=== PATIENT | female | born 1960 | race Caucasian/White ===

== ENCOUNTER 2017-10-31 14:07 | Observation (INO) | payer OTHER ==
[2017-10-31 14:48] LABS: #Basophils 0.1 thou/uL (0.0-0.2); #Eosinphils 0.1 thou/uL (0.0-0.7); #Lymphocytes 1.9 thou/uL (1.20-3.40); #Monocytes 0.5 thou/uL (0.11-0.59); #Neutrophils 7.6 thou/uL (1.40-6.50); %Basophils 0.8 % (0.0-1.0); %Eosinophils 1.4 % (0.0-10.0); %Lymphocytes 18.2 % (21.0-51.0); %Neutrophils 74.6 % (42.0-75.0); Hemoglobin 14.3 g/dL (12.0-16.0); Mean Corpuscular HGB CONC 33.8 g/dL (32.0-36.0); Mean Corpuscular Hemoglobin 31.1 pg (27.0-31.0); Mean Platelet Volume 6.9 fL (7.4-10.4); Platelet Count 193 thou/uL (130-400); RBC Distribution Width 14.1 % (11.5-14.5); Red Blood Cell (RBC) Count 4.59 mill/uL (4.20-5.40); White Blood Cell (WBC) Count 10.2 thou/uL (4.8-10.8)
--- NOTE | 2017-10-31 15:01 | RAD ---
PORTABLE CHEST 1 VIEW: DATE: 10/31/17. TIME: 2:46 p.m. HISTORY: Dyspnea. FINDINGS: Comparison is made with the exam of 03/19/17. Left-sided AICD remains in lace. The heart size is normal. The lungs are expanded without confluent areas of consolidation, pneumothoraces, or pleural effusions. IMPRESSION: No radiographic evidence of acute cardiopulmonary process. POS: OFF
[2017-10-31 15:09] LABS: ALT (SGPT) 40 U/L (8-55); AST (SGOT) 87 U/L (5-34); Albumin 3.6 g/dL (3.5-5.0); Alkaline Phosphatase 132 U/L (40-150); Anion Gap 14 mmol/L (10-20); BUN (Urea Nitrogen) 13 mg/dL (9.8-20.1); Bilirubin, Total 0.9 mg/dL (0.2-1.2); Calc. Creatinine Clearance 0 mL/min (70-130); Calcium 9.3 mg/dL (7.8-10.44); Carbon Dioxide 24 mmol/L (22-29); Chloride 104 mmol/L (98-107); Estimated GFR-MDRD 87; Globulin 4.2 g/dL (2.4-3.5); Glucose 139 mg/dL (70-105); Potassium 3.3 mmol/L (3.5-5.1); Protein, Total 7.8 g/dL (6.0-8.3); Sodium 139 mmol/L (136-145)
[2017-10-31] MEDS ORDERED: Albuterol Sulfate 2.5 mg/0.5 ml Neb ONE ×4 (15:34)
[2017-10-31] MEDS ORDERED: methylPREDNISolone Sod Succ/PF 125 MG/2 ML VIAL ONE (16:43)
[2017-10-31] MEDS ORDERED: Magnesium Sulfate 2 GM/100 ML BAG ONE (16:45)
[2017-10-31] MEDS ORDERED: Acetaminophen 500 MG TAB ONE (17:45)
[2017-10-31 18:37] LABS: Bilirubin Moderate (Negative); Blood, Urine Negative (Negative); Clarity CLOUDY (Clear); Glucose, Urine (Dipstick) Negative (Negative); Leukocyte Large (Negative); Nitrite Positive (Negative); Protein, Urine (Dipstick) 100 mg/dL (Neg-Trace); Specific Gravity, Urine 1.031 (1.002-1.036)
[2017-10-31 18:38] LABS: Hyaline Casts/LPF 4-6 HYALINE CAST LPF (0-3 Hyaline); Pathc Cast-AUWi Flag 1.76 (0-2.49); RBC/HPF None Seen HPF (0-3)
[2017-10-31 18:46] LABS: Yeast-AUWi Flag 26.1 (0-25.0)
[2017-10-31 18:58] LABS: Lactic Acid 2.4 mmol/L (0.5-2.2)
[2017-10-31 19:00] LABS: Bacteria/HPF 2+ HPF (None Seen); Crystals/HPF 1+ CA OXALATE HPF (Negative); Yeast-All Forms None Seen HPF (None Seen)
--- NOTE | 2017-10-31 19:21 | PDOC.FPRHP ---
- History of Present Illness Chief Complaint: SOB, productive cough History of Present Illness: 57 yo F w/ PMH of COPD, hep c cirrhosis, prior alcohol and drug abuse, htn, ventricular arrhythmia s/p AICD in 2001 and anxiety presents for 3 day h/o increasing sob with associated increased sputum production. The patient was discharged from the half-way recently and was given medications for a month and instructed to establish care with a primary physician; however, she has been unable to do so. She has run out of her home medications and the last time she used her inhaler was 3 days ago. Since then she has had the above symptoms w /o resolution and progressively worsening. She also reports associated chills, subjective fever, n/v, pleuritic type chest pain that is worse with cough and deep inspiration, described as sharp and non-radiating. On review of previous visit notes, pt has h/o copd being treated with dulera and albuterol, chronic hep c, htn on metoprolol and chronic back pain controlled with tramadol. - Allergies/Adverse Reactions Allergies Allergy/AdvReac Type Severity Reaction Status Date / Time furosemide [From Lasix] Allergy Unknown Rash Verified 03/20/17 03:52 codeine Allergy Rash Verified 03/20/17 02:08 morphine Allergy Verified 03/20/17 02:08 - Home Medications Medication Instructions Recorded Confirmed Type ALPRAZolam [Xanax] 0.5 mg PO TID 03/20/17 10/31/17 History Metoprolol Tartrate [Lopressor] 12.5 mg PO BID 03/20/17 10/31/17 History Omeprazole 20 mg PO DAILY 03/20/17 10/31/17 History Potassium Chloride [Klor-Con M20] 40 meq PO TID 03/20/17 10/31/17 History Sertraline HCl [Zoloft] 50 mg PO DAILY 03/20/17 10/31/17 History traMADol HCl [Tramadol HCl] 1 - 2 tab PO QID 03/20/17 10/31/17 History Mometasone/Formoterol [Dulera 200 2 puff INH BID #1 inhaler 03/23/17 10/31/17 Rx mcg/5 mcg Inhaler] Spironolactone [Aldactone] 25 mg PO DAILY 10/31/17 10/31/17 History - History PMHx: COPD, HTN, Hep CAlcoholic cirrhosis, prior drug and alcohol abuse, HTN, ventricular arrhythmia s/p aicd 2002, DJD spine PSHx: "back surgeries" FHx: Lung Ca mother, COPD father Social: Current every day smoker .5 ppd X 45 years, 22.5 pack year history, former alcohol and drug use. - Review of Systems General: reports: fever/chills, weight/appetite/sleep changes. denies: fatigue Eyes: denies: eye pain, vision changes ENT: reports: nasal congestion. denies: rhinorrhea Respiratory: reports: cough, congestion, shortness of breath. denies: exercise intolerance Cardiovascular: reports: chest pain. denies: palpitation, edema, orthopnea Gastrointestinal: reports: nausea, vomiting, abdominal pain. denies: diarrhea, constipation, GI bleeding Genitourinary: denies: incontinence, dysuria, polyuria Skin: reports: rashes (LLE, chronic), lesions Musculoskeletal: denies: swelling, arthritis/arthralgias Neurological: denies: numbness, syncope, weakness Psychological: reports: anxiety - Vital signs BP: 153/92 HR: 91 RR: 21 Tmax: 98.5 Pox: 88% on RA Wt: 65 Kg - Physical Exam Constitutional: NAD, awake, alert and oriented, well developed HEENT: normocephalic and atraumatic, PERRLA, EOMI, conjunctiva clear, no scleral icterus, grossly normal vision, TM's clear and intact, grossly normal hearing, MMM, oropharynx clear Neck: supple, trachea midline, no LAD, no JVD, no thyromegaly Chest: no-tender to palpation Heart: RRR, normal S1/S2, no murmurs/rubs/gallops, pulses present, no edema Lungs: no respiratory distress, good air movement, no rales/rhonchi, other ( diffuse mild end expiratory wheezing) Abdomen: soft, bowel sounds present, no masses/distention, other (TTP epigastric , RUQ no rebound or guarding) Musculoskeletal: normal structure, normal tone, ROM grossly normal Neurological: no focal deficit, CN II-XII intact Skin: capillary refill <2 seconds, no jaundice, other (scaling erythematous skin of LLE) Heme/Lymphatic: no unusual bruising or bleeding, no purpura, no petechia Psychiatric: other (appears anxious) FMR H&P: Results - Labs Result Diagrams: 10/31/17 14:28 10/31/17 14:28 Lab results: WBC 10.2 thou/uL (4.8-10.8) 10/31/17 14:28 Hgb 14.3 g/dL (12.0-16.0) 10/31/17 14:28 Hct 42.2 % (36.0-47.0) 10/31/17 14:28 MCV 92.0 fl (81.0-99.0) 10/31/17 14:28 Plt Count 193 thou/uL (130-400) 10/31/17 14:28 Neutrophils % 74.6 % (42.0-75.0) 10/31/17 14:28 Sodium 139 mmol/L (136-145) 10/31/17 14: Potassium 3.3 mmol/L (3.5-5.1) L 10/31/17 14: Chloride 104 mmol/L (98-107) 10/31/17 14:28 Carbon Dioxide 24 mmol/L (22-29) 10/31/17 14:28 BUN 13 mg/dL (9.8-20.1) 10/31/17 14:28 Creatinine 0.69 mg/dL (0.6-1.1) 10/31/17 14: Glucose 139 mg/dL (70-105) H 10/31/17 14:28 Lactic Acid 2.4 mmol/L (0.5-2.2) H 10/31/17 18:27 Calcium 9.3 mg/dL (7.8-10.44) 10/31/17 14:28 Total Bilirubin 0.9 mg/dL (0.2-1.2) 10/31/17 14:28 AST 87 U/L (5-34) H 10/31/17 14:28 ALT 40 U/L (8-55) 10/31/17 14:28 Alkaline Phosphatase 132 U/L (40-150) 10/31/17 14:28 Serum Total Protein 7.8 g/dL (6.0-8.3) 10/31/17 14:28 Albumin 3.6 g/dL (3.5-5.0) 10/31/17 14:28 Urine Ketones Trace mg/dL (Negative) H 10/31/17 18:20 Urine Blood Negative (Negative) 10/31/17 18:20 Urine Nitrite Positive (Negative) H 10/31/17 18:20 Ur Leukocyte Esterase Large (Negative) H 10/31/17 18:20 Urine RBC None Seen HPF (0-3) 10/31/17 18:20 Urine WBC Greater Than 50-TNTC HPF (0-3) H 10/31/17 18:20 Ur Squamous Epith Cells 11-20 HPF (0-3) H 10/31/17 18:20 Urine Bacteria 2+ HPF (None Seen) H 10/31/17 18:20 - EKG Interpretation EKG: Paced rhythm , rate 91. No ST changes. - Radiology Interpretation Chest x-ray Status: report reviewed by me Additional comment: AICD in place, No acute disease. FMR H&P: A/P - Problem List (1) COPD exacerbation Current Visit: Yes Status: Suspected Code(s): J44.1 - CHRONIC OBSTRUCTIVE PULMONARY DISEASE W (ACUTE) EXACERBATION (2) HTN (hypertension) Current Visit: Yes Status: Chronic Code(s): I10 - ESSENTIAL (PRIMARY) HYPERTENSION (3) UTI (urinary tract infection) Current Visit: Yes Status: Acute (4) Anxiety Current Visit: No Status: Chronic Code(s): F41.9 - ANXIETY DISORDER, UNSPECIFIED (5) Chronic hepatitis C Current Visit: No Status: Chronic Code(s): B18.2 - CHRONIC VIRAL HEPATITIS C Qualifiers: Hepatic coma status: without hepatic coma Qualified Code(s): B18.2 - Chronic viral hepatitis C (6) Chronic pain syndrome Current Visit: No Status: Chronic Code(s): G89.4 - CHRONIC PAIN SYNDROME (7) Hypokalemia Current Visit: No Status: Acute Code(s): E87.6 - HYPOKALEMIA (8) S/P implantation of automatic cardioverter/defibrillator (AICD) Current Visit: No Status: Chronic Code(s): Z95.810 - PRESENCE OF AUTOMATIC ( IMPLANTABLE) CARDIAC DEFIBRILLATOR - Plan 1) COPD exacerbation, mild-moderate - Pt satting at 88% ra w/o evidence of respiratory distress and has not received medications in last 3 days - admit obs - Duonebs q4hrs prn for wheezing sob, albuterol PRN - maintain sats 88-92% - levaquin 750mg q24hrs - Prednisone oral, 40 mg/day x 5 days - IVF NS @ 100mls/hr - repeat am cbc 2) HTN - Continue metoprolol 12.5mg bid - vitals per unit routine - 2 elevated pressures in ED, will monitor 3) UTI: - levaquin started for tonight, sufficient coverage - f/u on cultures, will de-escalate when ready for dc and transition to oral abx - am cbc 4) Anxiety: - continue zoloft 50mg/day - continue alprazolam .5 tid 5) Hep c cirrhosis - no evidence of ascites on exam - Mildly elevated AST - h/o spirinolactone use, unknown last dose - will need updated medical record from half-way - hold spirinolactone for now - repeat am cmp 6) Chronic pain - continue tramadol 50mg QID prn for pain 7) Hypokalemia - replace - check magnesium - replace as indicated 8) s/p AICD - h/o ventricular arrythmia - pt does report atypical chest pain for last 3 days that has not changed in character or severity; will check cardiac enzymes X1, if negative no need to repeat given pts symptoms have been present for 3 days. 9) PPX: SCDS, Omeprazole/tums Disposition/LOS: stable. </= 2 days. Symptomatic meds will be provided. FMR H&P: Upper Level - Pertinent history 48yo CF with PMHx of COPD, Hep C &EtOH cirrhosis, CAD w/ AICD placement and HTN who presents with worsening shortness of breath. Patient previously resided at [place] for 2yrs and was on hospice for 1yr during that time. She recently left the [place] 3d ago and now lives with her boyfriend. She has been out of all of her meds since leaving the [place] and is in the process of establishing care with a PCP. Endorses worsening shortness of breath, wheezing and productive cough for the past 3d. States she is coughing up a lot of white/clear phlegm. Says she has previously been on multiple inhalers but thinks she is just on albuterol now. Denies any fevers, chills, nasal congestion, sore throat, diarrhea. Endorses some nausea and vomiting today. In the ED, patient was given MgSO4 2g IV, solumedrol 125mg IV, duoneb and Tylenol 1g - Pertinent findings Gen: NAD HEENT: PERRLA Heart: S1 S2, RRR Lungs: diffuse expiratory wheezes Abd: soft, nt/nd/bs+ MSK: no cyanosis or edema - Plan Date/Time: 10/31/171906 I, Kaitlynn Mathews, have evaluated this patient and agree with findings/ plan as outlined by bakery pastry internship resident. Pertinent changes/additions are listed here. 1. COPD exacerbation: Place on obs to medical. Patient has been out of her albuterol inhaler for the past 3d as she recently left the [facility]. Given duonebs, MgSO4 and solumedrol in the ED. Cont duonebs and prednisone PO. Add Levaquin. Monitor overnight and likely discharge home tomorrow. 2. Elevated lactate: likely 2/2 #1. Initial lactate of 2.8 and trending down. Cont IVF. Trend q2H until resolved. 3. Hypokalemia: replenish and monitor. 4. Cirrhosis 2/2 Hep C and EtOH: Previously on spironolactone. Denies any ascites. Monitor. 4. HTN: cont home metoprolol 5. HLD: obtain FLP. Not on medication. Consider adding statin. 6. Anxiety/Depression: cont home Zoloft 7. Chronic low back pain 2/2 severe degenerative disc disease: cont home tramadol 8. Hx of medication non-compliance: Patient is a poor historian. Plan to obtain records from [place]. 9. PPx: SCDs 10. Diet: 11. Code Status: Full
[2017-10-31] MEDS ORDERED: Ondansetron ODT 4 MG TAB SL PRN (19:26)
[2017-10-31] MEDS ORDERED: Ondansetron HCl/PF 4 MG/2 ML Vial IVP PRN ×2 (19:26→19:40)
[2017-10-31] MEDS ORDERED: Acetaminophen 325 MG TAB PO PRN ×2 (19:26→19:40)
[2017-10-31] MEDS ORDERED: Albuterol Sulfate 2.5 mg/3 ml Neb NEB PRN ×2 (19:28→19:40)
[2017-10-31] MEDS ORDERED: Guaifenesin DM 100-10/5 ML UDCUP PO PRN (19:40)
[2017-10-31] MEDS ORDERED: Calcium Carbonate 500 MG ChewTAB PO PRN (19:40)
[2017-10-31] MEDS ORDERED: Ondansetron ODT 4 MG TAB PO PRN (19:40)
[2017-10-31 19:54] VITALS: BMI 23.3
[2017-10-31 20:12] LABS: CKMB 4.7 ng/mL (0-6.6); Troponin I 0.015 ng/mL (< 0.028)
[2017-10-31 20:50] LABS: Lactic Acid 2.1 mmol/L (0.5-2.2)
[2017-10-31] MEDS: Sodium Chloride 0.9% 1,000 ML IV SCH (21:48)
[2017-10-31] MEDS: Metoprolol Tartrate 25 MG TAB PO SCH (21:48)
[2017-10-31] MEDS: ALPRAZolam 0.5 MG TAB PO SCH (21:48)
[2017-10-31] MEDS: Potassium Chloride 20 MEQ TAB PO SCH (21:49)
[2017-10-31 23:19] LABS: Amphetamine Not Detected (NotDetected); Barbiturates Screen Not Detected (NotDetected); Benzodiazepine Screen Detected (NotDetected); Cocaine Metabolite Screen Not Detected (NotDetected); Medtox Control Line Valid? VALID (VALID); Medtox Reader # READER 1; Methadone Not Detected (NotDetected); Methamphetamine Not Detected (NotDetected); Opiate Screen Not Detected (NotDetected); Oxycodone Screen Not Detected (NotDetected); Phencyclidine (PCP) Not Detected (NotDetected); THC/Cannabinoid Screen Not Detected (NotDetected); Tricyclic Screen Not Detected (NotDetected)
[2017-10-31] MEDS: traMADol HCl 50 MG TAB PO PRN (23:43)
[2017-11-01 05:28] LABS: Anion Gap 12 mmol/L (10-20); BUN (Urea Nitrogen) 19 mg/dL (9.8-20.1); Calc. Creatinine Clearance 87 mL/min (70-130); Carbon Dioxide 23 mmol/L (22-29); Chloride 106 mmol/L (98-107); Estimated GFR-MDRD 83; Potassium 3.5 mmol/L (3.5-5.1); Sodium 137 mmol/L (136-145)
[2017-11-01 05:29] LABS: ALT (SGPT) 54 U/L (8-55); AST (SGOT) 96 U/L (5-34); Albumin 3.5 g/dL (3.5-5.0); Alkaline Phosphatase 133 U/L (40-150); Bilirubin, Total 0.6 mg/dL (0.2-1.2); Calcium 9.5 mg/dL (7.8-10.44); Cardiac Risk 2.6 (Less than 4.5); Cholesterol 137 mg/dl (< 200 Desired); Glucose 244 mg/dL (70-105); HDL Cholesterol 53 mg/dL (>60 Neg Risk); LDL Cholesterol, Calculated 76 mg/dL; Protein, Total 7.5 g/dL (6.0-8.3); Triglycerides 39 mg/dL (Less than 150)
[2017-11-01] MEDS: traMADol HCl 50 MG TAB PO PRN ×2 (06:12→11:02)
[2017-11-01 06:44] LABS: Band 9 % (5-11); Hemoglobin 13.6 g/dL (12.0-16.0); Lymphocytes 7 % (21-51); MDiff Complete? YES; Mean Corpuscular HGB CONC 32.2 g/dL (32.0-36.0); Mean Corpuscular Hemoglobin 29.7 pg (27.0-31.0); Mean Corpuscular Volume 92.1 fl (81.0-99.0); Mean Platelet Volume 7.3 fL (7.4-10.4); Monocytes 3 % (0-10); Neutrophil 81 % (42-75); Platelet Count 173 thou/uL (130-400); RBC Distribution Width 14.2 % (11.5-14.5); Red Blood Cell (RBC) Count 4.57 mill/uL (4.20-5.40); White Blood Cell (WBC) Count 4.9 thou/uL (4.8-10.8)
[2017-11-01] MEDS ORDERED: Magnesium 2 GM/NS 0.9% 100 ML 3 GM in Premix Bag 1 BAG IVPB SCH (06:45)
[2017-11-01] MEDS ORDERED: Magnesium Sulfate 3 GM, Admixture Fee 1 EACH in Sodium Chloride 0.9% 100 ML IVPB SCH (06:45)
[2017-11-01] MEDS: Potassium Chloride 20 MEQ TAB PO SCH (08:52)
[2017-11-01] MEDS: Metoprolol Tartrate 25 MG TAB PO SCH (08:52)
[2017-11-01] MEDS: ALPRAZolam 0.5 MG TAB PO SCH (08:53)
[2017-11-01] MEDS: Sodium Chloride 0.9% 1,000 ML IV SCH (08:58)
[2017-11-01] MEDS ORDERED: predniSONE 20 MG TAB PO SCH (09:00)
--- NOTE | 2017-11-01 09:25 | PDOC.FM ---
- Subjective Subjective: CC: AICD fired HPI: Patient states her AICD fired overnight. No other concerns. Breathing better. - Objective MAR Reviewed: Yes Vital Signs & Weight: Vital Signs (12 hours) Temp Pulse Resp BP BP Pulse Ox 11/01/17 08:00 97.7 F 94 20 11/01/17 07:48 97.7 F 94 20 163/81 H 96 11/01/17 02:56 97.9 F 95 20 150/74 H 92 L 11/01/17 01:31 93 20 98 11/01/17 00:58 94 24 H 145/93 H 92 L 10/31/17 22:08 89 22 H 97 Weight Weight 65.453 kg I&O: 10/31/17 11/01/17 11/02/17 06:59 06:59 06:59 Intake Total 991 Output Total 400 Balance 591 Result Diagrams: 11/01/17 04:42 11/01/17 04:42 EKG Reviewed by me: Yes (unchanged from admision. ) Radiology Reviewed by me: Yes (no infiltrate. ) <Oscar Joseph W - Last Filed: 11/01/17 09:23> - Objective Vital Signs & Weight: Vital Signs (12 hours) Temp Pulse Resp BP BP Pulse Ox 11/01/17 08:00 97.7 F 94 20 11/01/17 07:48 97.7 F 94 20 163/81 H 96 11/01/17 02:56 97.9 F 95 20 150/74 H 92 L 11/01/17 01:31 93 20 98 11/01/17 00:58 94 24 H 145/93 H 92 L Weight Weight 65.453 kg I&O: 10/31/17 11/01/17 11/02/17 06:59 06:59 06:59 Intake Total 991 Output Total 400 Balance 591 Result Diagrams: 11/01/17 04:42 11/01/17 04:42 <Nito Paez - Last Filed: 11/01/17 11:12> Phys Exam - Physical Examination Constitutional: NAD HEENT: moist MMs, sclera anicteric Neck: no nodes, no JVD Respiratory: no wheezing, clear to auscultation bilateral Cardiovascular: RRR, no significant murmur Gastrointestinal: soft, non-tender Musculoskeletal: no edema Neurological: non-focal, moves all 4 limbs Psychiatric: normal affect, A&O x 3 Skin: no rash, cap refill <2 seconds <Oscar Joseph - Last Filed: 11/01/17 09:23> Dx/Plan (1) COPD exacerbation Code(s): J44.1 - CHRONIC OBSTRUCTIVE PULMONARY DISEASE W (ACUTE) EXACERBATION Status: Suspected Plan: Prednisone/Levoquin day 2 - VSS. Breathing normal plan for d/c today and continue prednisone and levaquin for 5 days total. (2) S/P implantation of automatic cardioverter/defibrillator (AICD) Code(s): Z95.810 - PRESENCE OF AUTOMATIC (IMPLANTABLE) CARDIAC DEFIBRILLATOR Status: Chronic Plan: Was just d/c from [place] and has not seen fiscal economist in several years. Will get patient into [facility] soon and make appropriate referrals. EKG unremarkable. <Oscar Joseph - Last Filed: 11/01/17 09:23> Attending Addendum - Attending Addendum Date/Time: 11/01/17 1109 I personally evaluated the patient and discussed the management with Dr. Joseph. I agree with the History, Examination, Assessment and Plan documented above with any addition or exceptions noted below. Patient admitted for mild COPD exacerbation. Doing well on room air and improved from admission. She will be discharged on steroid taper, antibiotics, and chronic COPD meds that she has previously run out of. She will follow up in our clinic next week. <Nito Paez - Last Filed: 11/01/17 11:12>
--- NOTE | 2017-11-01 11:15 | DIS-2 ---
DATE OF ADMISSION: 10/31/2017 DATE OF DISCHARGE: 11/01/2017 RESIDENT: Oscar Joseph M.D. ADMITTING ATTENDING: Kaylyn Wright M.D. DISCHARGING ATTENDING: Nito Paez M.D. CONSULTATIONS: None. PROCEDURES: None. IMAGING: Chest x-ray, 10/31/2017 showed no acute processes. PERTINENT LABORATORY FINDINGS: Lactic acid at the time of admission 2.8 trended down to 2.1, magnesium at time of admission 1.2, replaced with 3 grams IV. Potassium at admission 3.1, replaced, trended up to 3.5. Cardiac enzymes were negative. Microbiology: Urine culture and blood cultures were taken. Negative at this time. Influenza swab was taken and negative for both influenza A and influenza B. PRIMARY DIAGNOSES: 1. Acute chronic obstructive pulmonary disease exacerbation. 2. AICD triggered with no changes in EKG. 3. Uncomplicated urinary tract infection. SECONDARY DIAGNOSES: 1. Hypertension. 2. Anxiety. 3. Hepatitis C with cirrhosis. 4. Chronic pain. 5. Hypokalemia. DISCHARGE MEDICATIONS: 1. Xanax 0.5 mg p.o. t.i.d., dispensed #42 tabs. 2. Robitussin-DM 15 mL q.4 hours p.r.n. for cough. 3. DuoNebs 3 mL q.4 h. p.r.n. 4. Levaquin 750 mg daily for 4 days. 5. Metoprolol tartrate 12.5 mg p.o. b.i.d. 6. Dulera 200 mcg/5 mcg inhaled 2 puffs b.i.d. 7. Omeprazole 20 mg daily. 8. Potassium chloride 20 mEq t.i.d. 9. Prednisone 40 mg daily for additional 4 days. 10. Zoloft 50 mg daily. 11. Spironolactone 25 mg daily. 12. Tramadol 50 mg p.o. q.i.d. p.r.n., dispensed #56 tabs. 13. Nebulizer machine with tubing and mask. DISCONTINUED MEDICATIONS: None. HISTORY OF PRESENT ILLNESS AND HOSPITAL COURSE: Ms. Hinds is a pleasant but anxious 57-year-old female who presented to the ER with 3-day history of shortness of breath and increased sputum production. She was recently discharged from a detention and was given 1 month supply of medications. However, she failed to follow up with an outpatient physician and has since run out of her medications for 3 days. She was admitted on observation status, given oral prednisone, DuoNebs and started on Levaquin. Additionally, her urine was suspicious for urinary tract infection. The patient was complaining of suprapubic pain and some mild dysuria. Urine culture is pending at this time. On day 2 of hospitalization, she was not requiring supplemental oxygen and was ambulating around the room easily and appeared to be back at baseline. She was given contact information for outpatient followup at [facility]. Vital signs at time of discharge were stable. Blood pressure was mildly elevated, but the patient had been out of her medication for several days. We will follow up with this outpatient. DISPOSITION: Stable. DISCHARGE INSTRUCTIONS: 1. Location: Home. 2. Diet: Heart healthy, low sodium. 3. Activity: As tolerated. 4. The patient is to follow up with [facility] within 1 week of discharge to establish care. She will need a repeat magnesium level and a base metabolic panel at this time. Less than 30 minutes spent on discharge including preparing discharge materials and providing patient education. JANE
[2017-11-01 12:21] VITALS: BP 171/107; TEMP 98
--- NOTE | 2017-11-03 17:32 | EKG ---
Test Reason : STAT Blood Pressure : / mmHG Vent. Rate : 098 BPM Atrial Rate : 098 BPM P-R Int : 160 ms QRS Dur : 088 ms QT Int : 424 ms P-R-T Axes : 089 -03 084 degrees QTc Int : 541 ms AV sequential or dual chamber electronic pacemaker When compared with ECG of 31-OCT-2017 14:34, (Unconfirmed) Vent. rate has increased BY [address] Gertrude MARIO ([id number]) on 11/03/2017 5:32:22 PM Referred By: Confirmed By:DR. Gertrude MARIO
--- NOTE | 2017-11-05 17:34 | EKG ---
Test Reason : Blood Pressure : / mmHG Vent. Rate : 091 BPM Atrial Rate : 091 BPM P-R Int : 148 ms QRS Dur : 076 ms QT Int : 392 ms P-R-T Axes : 098 065 060 degrees QTc Int : 482 ms AV sequential or dual chamber electronic pacemaker Confirmed by PASCUAL VILLA, RONN ([id number]), editorial manager ESEQUIEL PENNY ([id number]) on 11/05/2017 5:33:44 PM Referred By: Confirmed By:RONN GARNER MD
== END 2017-11-01 13:36 | disposition home or self-care (01) ==
LOC: ERS 14:07 → 2SW 17:47
PROVIDERS: ADMIT Family Medicine; ATTEND Family Medicine
DX: J44.1 Chronic obstructive pulmonary disease with (acute) exacerbation (principal); N39.0 Urinary tract infection, site not specified; I10 Essential (primary) hypertension; K70.30 Alcoholic cirrhosis of liver without ascites; B19.20 Unspecified viral hepatitis C without hepatic coma; E87.6 Hypokalemia; F10.11 Alcohol abuse, in remission; F19.10 Other psychoactive substance abuse, uncomplicated; M47.9 Spondylosis, unspecified; F17.210 Nicotine dependence, cigarettes, uncomplicated; G89.4 Chronic pain syndrome; I25.10 Atherosclerotic heart disease of native coronary artery without angina pectoris; F41.8 Other specified anxiety disorders; Z88.5 Allergy status to narcotic agent; Z88.8 Allergy status to other drugs, medicaments and biological substances; Z79.899 Other long term (current) drug therapy; Z95.810 Presence of automatic (implantable) cardiac defibrillator
CPT/HCPCS: 36415; 71045; 80053; 80061; 80306; 81003; 81015; 82553; 83605; 83735; 84484; 85007; 85025; 85027; 87040; 87086; 93005; 93010; 94640; 94644; 94760; 96361; 96365; 96366; 96375; 96376; 99406; G0378; J2920; J2930; J3475; J7050; J7506; J7611; J7620

== ENCOUNTER 2017-12-13 19:26 | Emergency (ER) | payer OTHER ==
[2017-12-13 20:27] LABS: #Basophils 0.1 thou/uL (0.0-0.2); #Eosinphils 0.1 thou/uL (0.0-0.7); #Lymphocytes 3.3 thou/uL (1.20-3.40); #Monocytes 0.7 thou/uL (0.11-0.59); #Neutrophils 4.4 thou/uL (1.40-6.50); %Basophils 1.1 % (0.0-1.0); %Eosinophils 1.6 % (0.0-10.0); %Monocytes 8.5 % (0.0-10.0); %Neutrophils 50.9 % (42.0-75.0); Hemoglobin 13.7 g/dL (12.0-16.0); Mean Corpuscular HGB CONC 33.4 g/dL (32.0-36.0); Mean Corpuscular Hemoglobin 32.4 pg (27.0-31.0); Mean Corpuscular Volume 97.1 fl (81.0-99.0); Mean Platelet Volume 6.9 fL (7.4-10.4); Platelet Count 187 thou/uL (130-400); RBC Distribution Width 16.4 % (11.5-14.5); Red Blood Cell (RBC) Count 4.21 mill/uL (4.20-5.40); White Blood Cell (WBC) Count 8.6 thou/uL (4.8-10.8)
[2017-12-13 20:48] LABS: ALT (SGPT) 73 U/L (8-55); AST (SGOT) 163 U/L (5-34); Albumin 3.5 g/dL (3.5-5.0); Alkaline Phosphatase 174 U/L (40-150); Anion Gap 20 mmol/L (10-20); BUN (Urea Nitrogen) 21 mg/dL (9.8-20.1); Bilirubin, Total 1.6 mg/dL (0.2-1.2); Calc. Creatinine Clearance 0 mL/min (70-130); Calcium 9.3 mg/dL (7.8-10.44); Carbon Dioxide 22 mmol/L (22-29); Chloride 100 mmol/L (98-107); Estimated GFR-MDRD Greater than 90; Globulin 3.3 g/dL (2.4-3.5); Glucose 113 mg/dL (70-105); Protein, Total 6.8 g/dL (6.0-8.3); Sodium 139 mmol/L (136-145)
[2017-12-13 20:54] LABS: Potassium 2.5 mmol/L (3.5-5.1)
[2017-12-13] MEDS ORDERED: traMADol HCl 50 MG TAB ONE (21:42)
[2017-12-13] MEDS ORDERED: Potassium Chloride 20 MEQ TAB ONE (21:42)
--- NOTE | 2018-02-18 14:22 | EKG ---
Test Reason : Blood Pressure : / mmHG Vent. Rate : 113 BPM Atrial Rate : 113 BPM P-R Int : 136 ms QRS Dur : 080 ms QT Int : 416 ms P-R-T Axes : 047 038 065 degrees QTc Int : 570 ms Sinus tachycardia with Premature supraventricular complexes and Premature ventricular complexes or Fu andrew complexes Low voltage QRS Borderline ECG Confirmed by SHIRIN VILLA, EMELIA Aguilar ([id number]), scientific editor ESEQUIEL PENNY ([id number]) on 02/18/2018 2:21:33 PM Referred By: Confirmed By:EMELIA CARPIO MD
== END 2017-12-13 22:33 | disposition home or self-care (01) ==
LOC: ERS 19:26
DX: E87.6 Hypokalemia (principal); K64.4 Residual hemorrhoidal skin tags; F41.9 Anxiety disorder, unspecified; E78.5 Hyperlipidemia, unspecified; I11.0 Hypertensive heart disease with heart failure; I50.9 Heart failure, unspecified; G40.909 Epilepsy, unspecified, not intractable, without status epilepticus; J44.9 Chronic obstructive pulmonary disease, unspecified; F17.210 Nicotine dependence, cigarettes, uncomplicated; Z79.899 Other long term (current) drug therapy
CPT/HCPCS: 36415; 80053; 82274; 85025; 86850; 86900; 86901; 93005; 94760

== ENCOUNTER 2018-02-01 21:26 | Inpatient (IN) | payer OTHER ==
[2018-02-01 22:01] LABS: Bilirubin Large (Negative); Blood, Urine Negative (Negative); Clarity CLOUDY (Clear); Glucose, Urine (Dipstick) Negative (Negative); Leukocyte Small (Negative); Nitrite Positive (Negative); Protein, Urine (Dipstick) Trace mg/dL (Neg-Trace); Specific Gravity, Urine 1.016 (1.002-1.036); Urobilinogen 0.2 mg/dL (0.2-1.0)
[2018-02-01 22:02] LABS: Bacteria/HPF None Seen HPF (None Seen); Hyaline Casts/LPF 7-10 HYALINE CAST LPF (0-3 Hyaline); Pathc Cast-AUWi Flag 2.18 (0-2.49); RBC/HPF 0-3 HPF (0-3); Squamous Epithelial None Seen HPF (0-3); WBC/HPF None Seen HPF (0-3)
--- NOTE | 2018-02-01 22:13 | CT ---
HEAD CT WITHOUT CONTRAST: 02/01/18 HISTORY: Fall. Altered mental status. COMPARISON: 01/08/16. TECHNIQUE: Noncontrast head CT is performed from skull base to skull vertex. FINDINGS: No parenchymal hemorrhage. No extra-axial hematoma. No midline shift. Basilar cisterns are patent. Br ain volume is age appropriate. Cortical tanner-white matter differentiation is preserved. Ventricles and sulci are patent and symmetric. White matter hypodensity are nonspecific but are favored to be due to chronic small vessel ischemic c hange. Calvarium is intact. Adequate aeration of the sinuses and mastoid air cells. IMPRESSION: No acute intracranial process. No intracranial posttraumatic sequela. POS: [facility]
[2018-02-01 22:14] LABS: Crystals/HPF 1+ BILIRUBIN HPF (Negative)
[2018-02-01 22:35] LABS: INR-International Normal Ratio 3.6; Prothrombin Time 37.4 SEC (12.0-14.7)
[2018-02-01 22:36] LABS: PTT 60.3 SEC (22.9-36.1)
[2018-02-01 22:47] LABS: Hemoglobin 13.6 g/dL (12.0-16.0); Mean Corpuscular HGB CONC 32.5 g/dL (32.0-36.0); Mean Corpuscular Hemoglobin 34.8 pg (27.0-31.0); Mean Platelet Volume 9.3 fL (7.4-10.4); Platelet Count 131 thou/uL (130-400); RBC Distribution Width 20.8 % (11.5-14.5); Red Blood Cell (RBC) Count 3.92 mill/uL (4.20-5.40); White Blood Cell (WBC) Count 8.3 thou/uL (4.8-10.8)
[2018-02-01 23:04] LABS: Anisocytosis MODERATE=16-30 cells (100X) (0-5/hpf); MDiff Complete? YES; Macrocytosis SLIGHT = 6-15 cells (100X) (0-5/hpf); PLT Morphology Comment Appears Adequate
[2018-02-01 23:07] LABS: ALT (SGPT) 309 U/L (8-55); AST (SGOT) 1344 U/L (5-34); Albumin 2.5 g/dL (3.5-5.0); Alkaline Phosphatase 185 U/L (40-150); Anion Gap 25 mmol/L (10-20); BUN (Urea Nitrogen) 44 mg/dL (9.8-20.1); Calc. Creatinine Clearance 0 mL/min (70-130); Calcium 6.4 mg/dL (7.8-10.44); Carbon Dioxide 8 mmol/L (22-29); Chloride 106 mmol/L (98-107); Estimated GFR-MDRD 20; Glucose 109 mg/dL (70-105); Potassium 3.8 mmol/L (3.5-5.1); Protein, Total 6.5 g/dL (6.0-8.3); Sodium 135 mmol/L (136-145)
[2018-02-01] MEDS ORDERED: Propofol 1,000 MG/100 ML VIAL IV ONE (23:07)
--- NOTE | 2018-02-01 23:29 | RAD ---
CHEST ONE VIEW: 02/01/18 HISTORY: Status post intubation. COMPARISON: 10/31/17 FINDINGS: Redemonstration of left sided transvenous defibrillator with lead position in the right atrium and ri ght ventricle. Endotracheal tube is at the level of the clavicles. Nasogastric tube appears at the le matthew of the distal thoracic esophagus. Normal cardiac silhouette. Pulmonary vessels and hilum are norm al. Costophrenic angles are clear. Minimal interstitial opacity in the lung bases. No pneumothorax. N o osseous abnormalities. Atherosclerosis of the aorta is noted. IMPRESSION: 1. Endotracheal tube at level of the clavicles. 2. Nasogastric tube which appears to be at the level of the distal thoracic esophagus. Results of the study discussed with Dr. Jorge 02/01/18 at 11:21 p.m. Code CR POS: NAY
[2018-02-01] MEDS ORDERED: SODIUM BICARBONATE IV SCH (23:30)
[2018-02-01] MEDS ORDERED: SODIUM CHLORIDE 0.45% IV SCH (23:30)
--- NOTE | 2018-02-01 23:43 | PDOC.FPRHP ---
- History of Present Illness Chief Complaint: AMS History of Present Illness: This patient was found down and EMS was called. EMS found her with a GCS 3, blood glucose was 26, they gave dextrose and her GCS improved to 13 and she was transported to the ED. She was unresponsive to questions in the ED only groaning. Review of records shows that she was discharged from a long term earlier this year and was on hospice at one time. FAmily could not be reached in the ED. ED Course: Intubated after GCS declined from 13-> 6 Left femoral line 1 amp bicarb 1 bolus NS - Allergies/Adverse Reactions Allergies Allergy/AdvReac Type Severity Reaction Status Date / Time furosemide [From Lasix] Allergy Unknown Rash Verified 02/02/18 02:10 codeine Allergy Rash Verified 02/02/18 02:10 morphine Allergy Verified 02/02/18 02:10 - Home Medications Medication Instructions Recorded Confirmed Type ALPRAZolam [Xanax] 0.5 mg PO TID #42 tab 11/01/17 02/02/18 Rx Guaifenesin DM 100-10 [Robitussin 15 ml PO Q4H PRN #120 ml 11/01/17 Rx DM] Ipratropium/Albuterol Sulfate 3 ml NEB [id number] PRN #30 neb 11/01/17 Rx [DuoNeb] Levofloxacin [Levaquin] 750 mg PO 2000 #4 tab 11/01/17 Rx Metoprolol Tartrate [Lopressor] 12.5 mg PO BID #60 tab 11/01/17 02/02/18 Rx Mometasone/Formoterol [Dulera 200 2 puff INH BID #1 inhaler 11/01/17 Rx mcg/5 mcg Inhaler] Omeprazole 20 mg PO DAILY #30 tablet. 11/01/17 Rx Potassium Chloride [K-Dur] 20 meq PO TID #90 tab 11/01/17 02/02/18 Rx Sertraline HCl [Zoloft] 50 mg PO DAILY #30 tab 11/01/17 02/02/18 Rx predniSONE 40 mg PO DAILY #8 tab 11/01/17 Rx Ondansetron [Zofran ODT] 4 mg PO Q6HR PRN 02/02/18 02/02/18 History Spironolactone [Aldactone] 50 mg PO DAILY 02/02/18 02/02/18 History traMADol HCl [Ultram] 100 mg PO QID PRN 02/02/18 02/02/18 History - History PMHx: COPD, HTN, Hep CAlcoholic cirrhosis, prior drug and alcohol abuse, HTN, ventricular arrhythmia s/p aicd 2002, DJD spine PSHx: "back surgeries" FHx: Lung Ca mother, COPD father Social: Current every day smoker .5 ppd X 45 years, 22.5 pack year history, former alcohol and drug use. - Review of Systems ROS unobtainable: due to mental status - Vital signs BP: 115/90 HR: 90 RR: 22 Tmax: 96.8 Pox: 100% on RA Wt: 70kg - Physical Exam -Constitutional: obtunded, makes groaning sounds, she has a noticably yellow hue HEENT: normocephalic and atraumatic, PERRLA, other (jaundice sclera) Neck: supple Heart: RRR, normal S1/S2, no murmurs/rubs/gallops, pulses present -Lungs: increased RR, no retractions, rales bilaterally Abdomen: soft, non-tender, no masses/distention Musculoskeletal: normal structure -Neurological: retracts to pain -Skin: cap refill 3s, jaundiced throughout -Heme/Lymphatic: multiple bruises throughout FMR H&P: Results - Labs Result Diagrams: 02/01/18 22:05 02/02/18 00:55 Lab results: WBC 8.3 thou/uL (4.8-10.8) 02/01/18 22:05 Hgb 13.6 g/dL (12.0-16.0) 02/01/18 22:05 Hct 41.9 % (36.0-47.0) 02/01/18 22:05 MCV 107.0 fl (81.0-99.0) H 02/01/18 22:05 Plt Count 131 thou/uL (130-400) 02/01/18 22:05 Sodium 135 mmol/L (136-145) L 02/01/18 22:05 Potassium 3.8 mmol/L (3.5-5.1) 02/01/18 22:05 Chloride 106 mmol/L (98-107) 02/01/18 22:05 Carbon Dioxide 8 mmol/L (22-29) L* 02/01/18 22:05 BUN 44 mg/dL (9.8-20.1) H 02/01/18 22:05 Creatinine 2.47 mg/dL (0.6-1.1) H 02/01/18 22:05 Glucose 109 mg/dL (70-105) H 02/01/18 22:05 Lactic Acid 9.1 mmol/L (0.5-2.2) H* 02/01/18 22:05 Calcium 6.4 mg/dL (7.8-10.44) L 02/01/18 22:05 Total Bilirubin 27.0 mg/dL (0.2-1.2) H 02/01/18 22:05 AST 1344 U/L (5-34) H 02/01/18 22:05 ALT 309 U/L (8-55) H 02/01/18 22:05 Alkaline Phosphatase 185 U/L (40-150) H 02/01/18 22:05 Ammonia 308 umol/L (18-72) H 02/01/18 22:05 Serum Total Protein 6.5 g/dL (6.0-8.3) 02/01/18 22:05 Albumin 2.5 g/dL (3.5-5.0) L 02/01/18 22:05 Urine Ketones Trace mg/dL (Negative) H 02/01/18 21:36 Urine Blood Negative (Negative) 02/01/18 21:36 Urine Nitrite Positive (Negative) H 02/01/18 21:36 Ur Leukocyte Esterase Small (Negative) H 02/01/18 21:36 Urine RBC 0-3 HPF (0-3) 02/01/18 21:36 Urine WBC None Seen HPF (0-3) 02/01/18 21:36 Ur Squamous Epith Cells None Seen HPF (0-3) 02/01/18 21:36 Urine Bacteria None Seen HPF (None Seen) 02/01/18 21:36 FMR H&P: A/P - Problem List (1) Hepatic encephalopathy Current Visit: Yes Status: Acute Code(s): K72.90 - HEPATIC FAILURE, UNSPECIFIED WITHOUT COMA (2) Lactic acid acidosis Current Visit: Yes Status: Acute Code(s): E87.2 - ACIDOSIS (3) Acute respiratory failure with hypoxia Current Visit: No Status: Acute Code(s): J96.01 - ACUTE RESPIRATORY FAILURE WITH HYPOXIA Comment: (4) UTI (urinary tract infection) Current Visit: No Status: Acute (5) COPD (chronic obstructive pulmonary disease) Current Visit: No Status: Chronic Qualifiers: COPD type: COPD with acute exacerbation Qualified Code(s): J44.1 - Chronic obstructive pulmonary disease with (acute) exacerbation (6) Chronic hepatitis C Current Visit: No Status: Chronic Code(s): B18.2 - CHRONIC VIRAL HEPATITIS C Qualifiers: Hepatic coma status: without hepatic coma Qualified Code(s): B18.2 - Chronic viral hepatitis C (7) Cirrhosis Current Visit: No Status: Chronic Code(s): K74.60 - UNSPECIFIED CIRRHOSIS OF LIVER Comment: due to alcohol/chronic hep C (8) S/P implantation of automatic cardioverter/defibrillator (AICD) Current Visit: No Status: Chronic Code(s): Z95.810 - PRESENCE OF AUTOMATIC ( IMPLANTABLE) CARDIAC DEFIBRILLATOR - Plan Neuro/Psych: (AMS likely secondary to ESLD) Sedated on propofol drip - GCS decreased to 6 in the ED prior to intubation Cardiovascular: (Hx of hypertension, hx of arrhythmia on AICD) - hold home meds, BP stable in ED - monitor Pulmonary: (COPD) Intubated, TV 400, Rate 20, PEEP 5, FiO2 100 - Blood gas shows mixed resp and metabolic acidosis - 1 amp bicarb in the ED GI/NUT: (ESLD. Hep C, hypoglycemia) MELD score of 40 - INR 3.6, bili 27.0, Cr 2.47, Na 135 - IVF, lactulose when PO - lactulose NG, Rectal - check SDS, acetaminphen, salicylates Renal/Electrolytes: monitor UOP - JÚNIOR, hepatorenal syndrome vs hypovolemia - D5 NS at 100 Infectious Disease: (uti) Blood cultures, urine cultures - Rocephin - UA shows leukocytes, nitrates Hem/Coag: (ESLD) - INR 3.6 Endocrine: monitor BG - hypoglycemic, D5 Family Communication: attempts to contact family have failed, currently full code - ED states they spoke with family in [place] over the phone, they referred us to daughter who lives in town and is MPOA, she could not be reached FMR H&P: Upper Level - Pertinent history 57 yo F with PMH significant for HepC cirrhosis presents after family noted her to be acting dazed this afternoon. Family called EMS who found her to have glucose of 26. Patient initially had GCS of 12 on arrival, but declined to a 6 , and was subsequently intubated. Unable to obtain any history from patient. Patient's boyfriend is present but not aware of much history at this time. - Pertinent findings PE: T: 96.8 P: 90 BP: 142/100 RR: 19 93% on ventilator Gen: obtunded female, jaundiced HEENT: pupils minimally reactive, dry MM CV: RRR, no murmurs, distal pulses intact Pulm: bilateral rhonchorous breath sounds Abd: soft, BS present, no masses or distention Ext: no cyanosis or edema Neuro: GCS 6, intubated Skin: multiple discolored rashes on forearms and legs Psych: obtunded - Plan Date/Time: 02/01/18 2343 57 yo F presents after being found to be hypoglycemic. 1) Hepatic encephalopathy: Suspect patient is in liver failure due to volume depletion and prolonged acidosis. Pt intubated in ER. Will consult Pulmonology , attempt to wean sedation as tolerated. Add lactulose via NG tube. F/u BCx and UCx. 2) AGMA with superimposed respiratory acidosis: Continue to ventilate, adding amp of bicarb. 3) Acute hypercapneic respiratory failure: Intubated, sedated currently. 4) UTI: Will cover with rocephin 5) COPD: will schedule duonebs 6) HepC cirrhosis: Trend CMPs. 7) h/o polysubstance abuse: Check UDS I, [Florian Macedo], have evaluated this patient and agree with findings/plan as outlined by research program internship resident. Pertinent changes/additions are listed here. Attending Addendum - Attending Addendum Date/Time: 02/01/18 2300 I personally evaluated the patient and discussed the management with Dr. Martinez/ [place]. I agree with the History, Examination, Assessment and Plan documented above with any addition or exceptions noted below. Please see dictated H&P for further details.
[2018-02-01 23:45] LABS: pH, Arterial 7.11 (7.35-7.45)
[2018-02-01 23:46] LABS: CO2 Tension 25.7 mmHg (35.0-45.0); O2 Tension (PaO2) 663.8 mmHg (80.0-100.0)
[2018-02-01 23:47] LABS: Base Excess (BEa) -19.9 mEq/L (-2.0 to +3.0); Hematocrit-ABG 45.9 % (36.0-47.0); Hemoglobin (Hb) 13.5 g/dL (12.0-16.0)
[2018-02-01 23:48] LABS: ALV-art Gradient 17.075 (0-20); Analyzer IN Cardio ER; Calcium, Ionized 0.8 mmol/L (1.12-1.30); Puncture Site LRA
[2018-02-02 00:06] LABS: Magnesium 1.1 mg/dL (1.6-2.6); Phosphorus 6.8 mg/dL (2.3-4.7)
--- NOTE | 2018-02-02 00:09 | PDOC.EVN ---
Event Note - Event Note Event Note: Neuro/Psych: (AMS likely secondary to ESLD) Sedated on propofol drip - GCS decreased to 6 in the ED prior to intubation Cardiovascular: (Hx of hypertension, hx of arrhythmia on AICD) - hold home meds, BP stable in ED - monitor Pulmonary: (COPD) Intubated, TV 400, Rate 20, PEEP 5, FiO2 100 - Blood gas shows mixed resp and metabolic acidosis - 1 amp bicarb in the ED GI/NUT: (ESLD. Hep C, hypoglycemia) MELD score of 40 - INR 3.6, bili 27.0, 2.47, Na 135 - IVF, lactulose when PO - lactulose NG, Rectal - SDS, acetaminphen, salicylates Renal/Electrolytes: monitor UOP - JÚNIOR, hepatorenal syndrome vs hypovolemia - NS at 100 Infectious Disease: (uti) Blood cultures, urine cultures - Rocephin - UA shows leukocytes, nitrates Hem/Coag: (ESRD) - INR 3.6 Endocrine: monitor BG Family Communication: attempts to contact family have failed
[2018-02-02] MEDS ORDERED: Ventilator Sedation Protocol 1 EACH FS SCH (01:18)
[2018-02-02] MEDS ORDERED: CCU Electrolyte Replacement 1 EACH IVPB ONE (01:18)
[2018-02-02] MEDS ORDERED: Propofol BOLUS 1,000 MG/100 ML VIAL IV PRN (01:23)
[2018-02-02] MEDS ORDERED: Morphine 4 MG/ML VIAL SLOW IVP PRN (01:23)
[2018-02-02] MEDS ORDERED: Lorazepam 2 MG/ML VIAL SLOW IVP PRN (01:23)
[2018-02-02] MEDS ORDERED: Propofol 1,000 MG/100 ML VIAL IV PRN (01:23)
[2018-02-02] MEDS ORDERED: Fentanyl BOLUS 250 ML IVPB PRN (01:23)
[2018-02-02] MEDS ORDERED: fentaNYL Citrate/PF 2,000 MCG in Sodium Chloride 0.9% 60 ML IV SCH (01:23)
[2018-02-02] MEDS ORDERED: Potassium Chloride 40 MEQ in Sodium Chloride 0.9% 250 ML 250 ML IVPB PRN (01:24)
[2018-02-02] MEDS ORDERED: Potassium Chloride 40 MEQ in Premix Bag 1 BAG IVPB PRN (01:24)
[2018-02-02] MEDS ORDERED: Potassium Phosphate 9 MMOL in Sodium Chloride 0.9% 100 ML IVPB PRN (01:24)
[2018-02-02] MEDS ORDERED: CCU ELECTROLYTE REPLACEMENT PROTOCOL FS PRN (01:24)
[2018-02-02] MEDS ORDERED: Magnesium Oxide 400 MG TAB PO PRN ×2 (01:24)
[2018-02-02] MEDS ORDERED: Magnesium 2 GM/NS 0.9% 100 ML 2 GM in Premix Bag 1 BAG IVPB PRN (01:24)
[2018-02-02] MEDS ORDERED: Potassium Phosphate 15 MMOL in Sodium Chloride 0.9% 250 ML 250 ML IV PRN (01:24)
[2018-02-02] MEDS ORDERED: Potassium Phosphate 12 MMOL in Sodium Chloride 0.9% 250 ML 250 ML IV PRN (01:24)
[2018-02-02] MEDS ORDERED: Potassium Chloride 20 MEQ TAB PO PRN (01:24)
[2018-02-02 01:25] VITALS: BMI 26.4
[2018-02-02 01:32] LABS: Bilirubin, Total 26.5 mg/dL (0.2-1.2)
[2018-02-02 01:40] LABS: ALT (SGPT) 603 U/L (8-55); AST (SGOT) 2818 U/L (5-34); Albumin 2.2 g/dL (3.5-5.0); Alkaline Phosphatase 180 U/L (40-150); Anion Gap 23 mmol/L (10-20); BUN (Urea Nitrogen) 39 mg/dL (9.8-20.1); Calc. Creatinine Clearance 26 mL/min (70-130); Carbon Dioxide 8 mmol/L (22-29); Chloride 107 mmol/L (98-107); Estimated GFR-MDRD 19; Globulin 3.6 g/dL (2.4-3.5); Glucose 31 mg/dL (70-105); Potassium 3.3 mmol/L (3.5-5.1); Protein, Total 5.8 g/dL (6.0-8.3); Sodium 135 mmol/L (136-145)
--- NOTE | 2018-02-02 01:40 | HP ---
DATE OF ADMISSION: 02/02/2018 TIME OF ADMISSION: 2300 hours. HISTORY OF PRESENT ILLNESS: This is attending history and physical for patient Sussy Hinds. For full history and physical details, please see Dr. Johnathon Martinez 's transcribed history and physical. Portions of the history and physical have been repeated by myself and I am in agreement with the plan as discussed in his note. In brief, this patient is a 57-year-old female with a history of COPD, AICD placement, status post ventricular arrhythmias, history of torsades de pointes secondary to electrolyte abnormalities, hypertension, hepatitis C with cirrhosis , polysubstance abuse who is presenting to the emergency room with altered mentation. No family was able to be contacted and was not present in the room during the time of our exam and therefore majority of the history is obtained from the medical record as well as the ER and EMS notes. Summarizing the records, this patient is presenting to the emergency room with altered mentation of unknown duration. Per records, EMS arrived at the scene of the patient's house and found her to be disheveled in very poor living conditions. At that time, her GCS was noted to be 3. Accu-Chek was done which showed a glucose of 26 and therefore dextrose was given with improvement of GCS to 12. She was transferred to this facility for higher level of care and further workup. During her time in the emergency room, GCS remained around 12; however, she was altered enough that she cannot answer any questions appropriately or give any historical accounts of her current illness. Family was attempted to be contacted; however, we have been unable to reach her presumed medical power of admitted attorneys. During her time in the emergency room, her mentation began decompensating. The patient was intubated secondary to concern for failure to protect airway. Reviewing patient's notes from previous hospitalizations, it does appear that she has a history of COPD as well as hepatitis C, cirrhosis. She apparently has previously been admitted to a [place] [facility] and spent quite a bit of time there and at one point was on hospice. Though at the time of her last admission , she was noted to be a FULL CODE and therefore she must not be on current hospice care. Her last hospitalization was in 10/2017 for mild COPD exacerbation secondary to medication noncompliance. She was discharged with refills of all her medications at that time and it was advised that she follow up with her primary care provider, however, I note that in her medication bag that is present with her tonight. Some of those medications from the October hospitalization are still in her possession likely indicating continued noncompliance. PHYSICAL EXAMINATION: VITAL SIGNS: At the time of her ER assessment show a temperature 96.8, pulse 90 is ventricularly paced, blood pressure 115/90, respirations 22, and oxygen saturations 100% on room air. Of note, she is now currently satting 100% on mechanical ventilation. GENERAL: Patient is sedated on mechanical ventilation. She is obviously in no apparent distress. She is profoundly icteric diffusely. EYES: Pupils were equally round, minimally reactive to light. Icteric sclerae noted. HEENT: Showed endotracheal tube in place. No major visible abnormalities noted. NECK: Supple without lymphadenopathy. HEART: Regular rate and rhythm without murmurs, rubs, or gallops. RESPIRATORY: Lungs overall clear bilaterally to auscultation. No transmitted upper airway sounds were noted with ventilator breathing. ABDOMEN: Soft, nondistended. No palpable fluid wave. EXTREMITIES: Cool. Upper extremities were icteric with palpable pulses, though faint bilaterally. Her lower extremity exam revealed findings consistent with chronic venous stasis and were cool as well. Faintly palpable pulses. LABORATORY DATA: 1. CBC: WBC 8.3, H&H 13.6 and 42, platelets 131. 2. BMP: Sodium 135, potassium 3.8, chloride 106, bicarbonate 8, BUN 44, creatinine 2.47, glucose 109. 3. Coags: PT 37, PTT 60. INR 3.6. 4. AST and ALT were 13 and 44 and 306. Total bilirubin 27. 5. Ammonia 308. 6. Albumin 2.5. 7. Lactate 9.1. 8. Urinalysis showed positive nitrites, small leukocyte esterase, but no wbc's , rbc's, or bacteria noted. 9. Brain CT showed no acute process. ASSESSMENT AND PLAN: This patient is a 57-year-old female with history of chronic obstructive pulmonary disease, ventricular arrhythmias, hepatitis C with cirrhosis, polysubstance abuse, medication noncompliance who is presenting with altered mentation, inability to protect her airway. 1. Suspected hepatic encephalopathy. Patient appears to be in a state of decompensated cirrhosis. She has a highly elevated AST and moderately elevated ALT in association with a profoundly elevated bilirubin level that was not present on her previous hospitalization. She also has a degree of coagulopathy , all of which suggesting decompensated cirrhosis and possibly some in the hepatic failure. Her ammonia is highly elevated at 308, which is likely contributing to at least to some of her altered mentation. Patient received 2 liters of fluids in the emergency room. We will continue the patient on IV fluids and we will recheck ammonia level, see how much that comes down with initial interventions. I would suggest that NG tube as well as a rectal tube be placed and that we begin therapy with lactulose to see if we can get her ammonia level down and make her n.p.o. course that she is intubated, likely GI consult in the morning. I do not see anything currently going on that would require urgent or emergent consultation of them at this time. 2. Sepsis secondary suspected urinary tract infection. Patient's initially mildly hypertensive, but now improved after 2 liters of IV fluids; however, she does have a profound metabolic acidosis and evidence on UA of possible UTI. As we currently do not have a great explanation for why she is in decompensated cirrhosis, we should begin empiric coverage with broad spectrum antibiotics. Blood and urine cultures obtained by the emergency physicians and await those results. Trend lactate though expect some improvement with IV fluid therapy, though I do not expect it to return to normal due to her degree of liver failure. 3. Probable decompensated cirrhosis. Her MELD score is currently 42, in which proteins greater than 70% mortality rate over the next 3 months. She has evidence of poor toxin clearance, coagulopathy as well as low synthetic function of her liver. We will trend these values, but it does appear that she may be in near fulminant hepatic failure. 4. Metabolic acidosis. ABG results which came back after initial evaluation are more consistent with a combined increased anion gap metabolic acidosis as well as respiratory acidosis. The increased anion gap metabolic acidosis likely secondary to hepatic failure to clear lactate. Fluids, empiric antibiotics, supportive care as mentioned above. In regards to her concomitant respiratory acidosis, there is likely a degree of this due to altered mentation and hypoventilation, but also due to her chronic COPD. She is currently on mechanical ventilation, which will help offset that. Suspect, we will recheck ABG in the morning. 5. Coagulopathy as above. This is likely secondary to her advanced liver disease. No evidence of bleeding at this time and therefore, we will hold on any sort of blood products. Continue to trend. 6. Acute kidney injury versus possible hepatorenal syndrome. Patient's last creatinine from her previous hospitalization was 0.66 and is now 2.47. This is either degree of profound hypovolemia associated with sepsis and altered mentation or the onset of hepatorenal syndrome. As we do not have a time course and how quickly this is come on would be unknown at this to be type 1 or type 2 hepatorenal syndrome. However, we will give IV fluids and trend this value and hope to see some improvement and that would suggest this is likely more just related to an acute kidney injury secondary to hypovolemia. 7. History of drug abuse and alcohol abuse. She is altered, I would recommend a urine drug and serum drug screen. Also, due to her history of ventricular arrhythmias secondary to electrolyte abnormalities would like to check a magnesium as well as phosphorus to ensure that those levels are appropriate. She will be admitted to the ICU and placed on electrolyte protocol as needed and replacement. CODE STATUS: As mentioned above, patient was previously on hospice, but that was revoked. At the time of her last admission to the hospital, she was a FULL CODE. We attempted to contact family members multiple times prior to patient being intubated, but were unsuccessful. In the emergency room, apparently did get all of her family member in [place] who reported that the medical power of admitted attorneys was here in [place], but they did not have contact information for them. We will continue to reach out and try to contact family members through the night and in the morning to further clarify her code status as well as her wishes regarding her health. Seventy-five minutes critical care time spent involved in the stabilization and initial treatment management of this patient's care. JANE
[2018-02-02] MEDS ORDERED: Dextrose 50% Abboject 50 ML SYRINGE ONE (01:46)
[2018-02-02] MEDS ORDERED: Sodium Bicarb 50 MEQ/50 ML Abboject 8.4% SYRINGE IVP SCH (02:00)
[2018-02-02] MEDS ORDERED: Sodium Chloride 0.9% 1,000 ML IV SCH ×3 (02:15→10:45)
[2018-02-02] MEDS ORDERED: Dextrose 5 % And 0.9 % NaCl 1,000 ML IV SCH (02:30)
[2018-02-02] MEDS ORDERED: Dextrose 5% in Water 1,000 ML IV PRN (02:34)
[2018-02-02] MEDS ORDERED: Dextrose 50% Abboject 50 ML SYRINGE IVP PRN (02:34)
[2018-02-02 02:43] LABS: Acetaminophen Less than 6.0 mcg/mL (10.0-30.0); Alcohol Less than 10 mg/dL (Less than 10); Salicylate Less than 8.0 mg/dL (15.0-30.0)
[2018-02-02 02:44] LABS: Lactic Acid 8.2 mmol/L (0.5-2.2)
[2018-02-02] MEDS: cefTRIAXone\\ROCEPHIN 2 GM in Sodium Chloride 0.9% 100 ML IVPB SCH (02:45)
[2018-02-02] MEDS: Dextrose 5 % And 0.9 % NaCl 1,000 ML IV SCH ×3 (03:30→21:35)
--- NOTE | 2018-02-02 05:31 | PDOC.EVN ---
Event Note - Event Note Event Note: Was able to speak to Daughter Katrina on the telephone, she confirms that she is the MPOA Daughter states she is aware the ED was trying to reach her After discussing guarded prognosis, daughter states that her mother, the patient , does not want CPR MPOA would like to continue with medical management at this time, including pressors if indicated Instructed daughter that she should come to the hospital sooner than later Changed code status to DNR
[2018-02-02 07:53] LABS: Base Excess-Venous -17.9 mmol/L (0 (+/- 2.5)); Bicarbonate (HCO3v) 10.7 mmol/L (1.0-85.0); CO2 Tension (PvCO2) 34.7 mmHg (41.0-51.0); Calcium, Ionized 0.48 mmol/L (1.12-1.32); Hemoglobin - Calc 22.7 g/dL (12.0-18.0); Lactate 8.18 mmol/L (0.50-2.20); O2 Tension (PvO2) 42.6 mmHg (35.0-45.0); T. Carbon Dioxide 11.8 mmol/L (1.0-85.0); pH (Venous) 7.097 (7.35-7.45); vO2 Saturation-calc 61.3 % (94-98)
[2018-02-02] MEDS ORDERED: Norepinephrine 8 MG/0.9% NS 0 ML ONE (08:01)
[2018-02-02 08:18] LABS: Amphetamine Not Detected (NotDetected); Barbiturates Screen Not Detected (NotDetected); Benzodiazepine Screen Not Detected (NotDetected); Cocaine Metabolite Screen Not Detected (NotDetected); Medtox Control Line Valid? VALID (VALID); Medtox Reader # READER 4; Methadone Not Detected (NotDetected); Methamphetamine Not Detected (NotDetected); Opiate Screen Not Detected (NotDetected); Oxycodone Screen Not Detected (NotDetected); Phencyclidine (PCP) Not Detected (NotDetected); THC/Cannabinoid Screen Not Detected (NotDetected); Tricyclic Screen Not Detected (NotDetected)
[2018-02-02] MEDS ORDERED: Rifaximin 550 MG TAB PO SCH ×2 (10:00→21:00)
--- NOTE | 2018-02-02 10:00 | CON ---
DATE OF CONSULTATION: 02/02/2018 A 57-year-old female with end-stage liver disease, multiple medical problems, has been here numerous times. In fact, Pulmonary has seen her several times in 2012 with respiratory failure. At that time she had multiple medical issues. Apparently last night she was found down, living with her boyfrien d. EMS was called and she was found to be hypoglycemic with a blood sugar of 26. She was given D50 and apparently still had mental status changes. She was intubated. She was hypertensive. Initial blood gases reveal severe metabolic acidosis. There is a daughter here and who lives in [place]. Her mother was in a prolonged nursing natalio e in [place] for an extended period of time. Three months ago she left the shelter to lives wi th her boyfriend here. She has been made a DNR at this stage. PAST MEDICAL HISTORY: Extensively outlined includes: 1. Coronary artery disease. 2. Congestive heart failure. 3. Angioplasty, pacemaker. 4. AICD. 5. Hypertension. 6. Hyperlipidemia. 7. Cirrhosis. 8. Hepatitis C. 9. Epilepsy. 10. Previous substance abuse. 11. Gallbladder. 12. Chronic obstructive pulmonary disease. 13. Previous pancreatitis. PAST SURGICAL HISTORY: Tubal ligation, back surgery, AICD, pneumothorax, some kind of a brain tumor at some time. AICD placed and back surgery done. MEDICATIONS: It is unclear what medications, but medicine that has been given at this stage, include s tramadol, prednisone 40, Aldactone 50, Zoloft 50, potassium, omeprazole 20, Dulera, metoprolol 12.5 , nebulizer, guaifenesin, Xanax. The daughter says she has got no primary care physician to know of, only doctor was at the [facility]. She had to see a physician there. ALLERGIES: LASIX, CODEINE, and MORPHINE. SOCIAL/FAMILY HISTORY: Previous polysubstance drug abuse, previous tobacco abuse, previous alcohol a buse. REVIEW OF SYSTEMS: Otherwise unobtainable. PHYSICAL EXAMINATION:: HEENT: Pupils 2 mm. GENERAL: She is jaundiced, unresponsive on the vent, no sedation. VITAL SIGNS: Pulse 90, blood pressure 84/40, sats 96%, respirations 20. She is not assisting the ve nt. I's and O's 1395 in, 205 out. CHEST: Chest reveals decreased breaths. No wheezing. CARDIAC: Normal S1, S2, no gallops. ABDOMEN: Distended. EXTREMITIES: No edema. LABORATORY: Lab with multiple abnormalities. AST is 2818. ALT is 603. Lactic acid 8.2. BUN is 39 , creatinine 2.5, bicarb was 8, blood sugar is 102 this morning, potassium is 3. Blood gas pO2 was 663, pCO2 of 25.11. She was given several amps of bicarbonate last night. IMPRESSION: 1. End-stage liver disease. 2. Encephalopathy. 3. Hypoglycemia recurrent from end-stage liver disease. 4 Renal failure. 5. Congestive heart failure, AICD in place. 6. Metabolic encephalopathy. PLAN: Continue lactulose, rifaximin, empiric antibiotics and vent. Supportive care. Albumin was gi dominga. She has been made a DNR as per her daughter. Long-term prognosis is guarded. I think she probably i s anoxic. We will reassess the situation in 24-48 hours. This is a 45 minute critical care time.
--- NOTE | 2018-02-02 11:24 | PDOC.FM ---
- Subjective Subjective: Patient found in bed, not on sedation, but unresponsive and intubated. - Objective MAR Reviewed: Yes Vital Signs & Weight: Vital Signs (12 hours) Temp Pulse Resp Pulse Ox 02/02/18 10:00 20 02/02/18 08:00 20 02/02/18 07:44 90 02/02/18 06:00 20 02/02/18 04:00 20 02/02/18 03:23 97 F L 93 20 100 02/02/18 02:21 97.6 F 02/02/18 02:00 20 02/02/18 01:30 20 02/02/18 01:18 100 02/02/18 01:00 97.8 F Weight Weight 69.9 kg Most Recent Monitor Data Heart Rate from ECG 98 NIBP 80/49 NIBP BP-Mean 55 Respiration from ECG 20 SpO2 96 I&O: 02/01/18 02/02/18 02/03/18 06:59 06:59 06:59 Intake Total 1395 Output Total 205 4 Balance 1190 -4 Result Diagrams: 02/01/18 22:05 02/02/18 00:55 <Anibal Donaldson M - Last Filed: 02/02/18 11:40> - Objective Vital Signs & Weight: Vital Signs (12 hours) Temp Pulse Resp Pulse Ox 02/02/18 18:00 20 02/02/18 16:00 20 02/02/18 14:09 100 02/02/18 14:00 20 02/02/18 12:00 20 02/02/18 11:19 95 02/02/18 10:00 20 02/02/18 08:00 97.2 F L 90 20 98 02/02/18 07:44 90 Weight Admit Weight 69.853 kg Weight 69.9 kg Most Recent Monitor Data Heart Rate from ECG 89 NIBP 55/42 NIBP BP-Mean 45 Respiration from ECG 20 SpO2 68 I&O: 02/01/18 02/02/18 02/03/18 06:59 06:59 06:59 Intake Total 1395 2929 Output Total 205 4 Balance 1190 2925 Result Diagrams: 02/01/18 22:05 02/02/18 00:55 <Nito Paez R - Last Filed: 02/02/18 18:52> Phys Exam - Physical Examination Constitutional: NAD Jaundiced Intubated Rhonchi Cardiovascular: RRR, no significant murmur Gastrointestinal: soft Diminished bowel sound 1+ edema hood Deviation from normal: Unresponsive Skin: no rash <Anibal Donaldson - Last Filed: 02/02/18 11:40> Dx/Plan (1) Sepsis Code(s): A41.9 - SEPSIS, UNSPECIFIED ORGANISM Status: Acute Plan: Suspected to be secondary to UTI. Plan for rocephin, continue IV fluids. (2) Hepatic encephalopathy Code(s): K72.90 - HEPATIC FAILURE, UNSPECIFIED WITHOUT COMA Status: Acute Plan: Elevated ammonia level. Etiology likely cirrhosis. May play a part in her AMS Plan is start with lactulose and rifaxime. (3) Lactic acid acidosis Code(s): E87.2 - ACIDOSIS Status: Acute Plan: Elevated LA, likely from cirrhosis and sepsis. Currently getting fluid bolus along with IV hydration (4) Hypomagnesemia Code(s): E83.42 - HYPOMAGNESEMIA Status: Acute Plan: Being corrected with 400mg of mag. Will trend and correct as needed (5) UTI (urinary tract infection) Status: Acute Plan: UA suspicious for UTI. Starting on rocephin. Culture pending. (6) Cirrhosis Code(s): K74.60 - UNSPECIFIED CIRRHOSIS OF LIVER Status: Chronic Plan: Per daughter, patient has hepatitis cirrhosis. Etiology of several of her current issue including encephlopathy, lactic acidosis and hypoglycemia on admission Plan to continue with NS with D5 to cover her glucose need. Lactulose and rifaxime for her encephlopathy. (7) HTN (hypertension) Code(s): I10 - ESSENTIAL (PRIMARY) HYPERTENSION Status: Chronic Plan: At this time, holding all HTN medication due to low BP from sepsis. (8) S/P implantation of automatic cardioverter/defibrillator (AICD) Code(s): Z95.810 - PRESENCE OF AUTOMATIC (IMPLANTABLE) CARDIAC DEFIBRILLATOR Status: Chronic Plan: She has AICD placed. Patient on telemetry. In sinus rhythm during exam. Will continue to monitor. <Anibal Donaldson - Last Filed: 02/02/18 11:40> (1) Hepatic encephalopathy Code(s): K72.90 - HEPATIC FAILURE, UNSPECIFIED WITHOUT COMA Status: Acute (2) Lactic acid acidosis Code(s): E87.2 - ACIDOSIS Status: Acute (3) Acute respiratory failure with hypoxia Code(s): J96.01 - ACUTE RESPIRATORY FAILURE WITH HYPOXIA Status: Acute (4) UTI (urinary tract infection) Status: Acute (5) COPD (chronic obstructive pulmonary disease) Status: Chronic Qualifiers: COPD type: COPD with acute exacerbation Qualified Code(s): J44.1 - Chronic obstructive pulmonary disease with (acute) exacerbation (6) Chronic hepatitis C Code(s): B18.2 - CHRONIC VIRAL HEPATITIS C Status: Chronic Qualifiers: Hepatic coma status: without hepatic coma Qualified Code(s): B18.2 - Chronic viral hepatitis C (7) Cirrhosis Code(s): K74.60 - UNSPECIFIED CIRRHOSIS OF LIVER Status: Chronic (8) S/P implantation of automatic cardioverter/defibrillator (AICD) Code(s): Z95.810 - PRESENCE OF AUTOMATIC (IMPLANTABLE) CARDIAC DEFIBRILLATOR Status: Chronic <Nito Paez - Last Filed: 02/02/18 18:52> Attending Addendum - Attending Addendum Date/Time: 02/02/18 0900 I personally evaluated the patient and discussed the management with Dr. Donaldson. I agree with the History, Examination, Assessment and Plan documented above with any addition or exceptions noted below. Patient continues on ventilator with no improvement in condition. She is off sedation and having no spontaneous breaths or movements. Continue ventilator support for now. It continues to appear that she is in fulminant hepatic failure with severe hepatic encephalopathy. Continue IV fluids, Lactulose therapy. Continue antibiotics. Palliative care on board to help discuss goals of care. The family may wish to withdraw care as patient was previously on hospice care and her current prognosis is poor. Await family discussion. Appreciate Pulm recs. Continue supportive care at this time. <Nito Paez - Last Filed: 02/02/18 18:52>
[2018-02-03 01:02] VITALS: TEMP 98.1
[2018-02-03] MEDS: cefTRIAXone\\ROCEPHIN 2 GM in Sodium Chloride 0.9% 100 ML IVPB SCH (01:51)
--- NOTE | 2018-02-03 06:45 | DS-2 ---
ATTENDING: Dr. Nito Paez. RESIDENT: Dr. Johnathon Martinez. DATE OF ADMISSION: 02/01/2018 DATE OF : 02/03/2018 TIME OF : 2:00 a.m. CAUSE OF : 1. Hepatic encephalopathy. 2. 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 SECONDARY DIAGNOSES: 1. Hypertension. 2. History of arrhythmia. 3. Chronic obstructive pulmonary disease. 4. End-stage liver disease. 5. Hepatitis C, chronic. 6. Acute kidney injury. 7. Urinary tract infection. HOSPITAL COURSE: This was a 57-year-old female who was previously on hospice earlier this year and d [facility], presented after EMS was called as she was found down at her house. H er GCS on arrival by the EMS was said to be 3. Her blood glucose at that time was 26. They gave her some dextrose and GCS improved to 13 and she was transported to the ED. She was unresponsive to que stions in the ED and only groan. Family could not be reached in the ED. She was intubated secondary to a GCS decline from 13 to 6. Patient was found to be in metabolic acidosis with respiratory acido sis contributing as well. The patient was given fluids to help maintain blood pressure. Patient was given antibiotic coverage for possible UTI. I spoke to the family who the MPOA, daughter, Katrina, stated that the patient had made it clear that she did not want CPR, so the patient was made a DNR. Additional conversations with the family, the MPOA, resulted in the family saying that they did not w ant pressors to be used for maintenance of blood pressure. Ultimately, the patient's blood pressure continued to decline slowly until she at 2:00 a.m. on 02/03/2018. Her ammonia level was found t o be 254 on admission. She also had elevated transaminitis. we used lactulose through the NG tube t o attempt to decrease her ammonia levels. Ultimately, the patient did and was transported and e body was cared for in typical fashion.
--- NOTE | 2018-02-06 08:30 | PQF ---
HENRI FARAH Jason [id number] CLINICAL DOCUMENTATION CLARIFICATION FORM: POST DISCHARGE Please exercise your independent, professional judgment in responding to the clarification form. Clinical indicators are provided on the bottom of this form for your review. Thank you. Please check appropriate box(s) to clarify if the following diagnosis has been ruled in or ruled out: _X____Sepsis (CDI/Coding list diagnosis here) [ ] Ruled in diagnosis [ ] Continue to treat [ ] Resolved [ ] Ruled out diagnosis [ X] Cannot rule out diagnosis [ ] Other diagnosis [ ] Unable to determine In addition, please specify: Present on Admission (POA): [X ] Yes [ ] No [ ] Unable to determine For continuity of documentation, please document condition throughout progress notes and discharge summary. Thank You. CLINICAL INDICATORS - SIGNS / SYMPTOMS / LABS Sepsis - suspected to be secondary to UTI dodumented in Progress Note - 02/02/18 Nito Paez Lactic acidosis - HP 02/01/18 WBC 8.3 02/01/18 RISK FACTORS Acute Respiratory Failure with hypoxia, UTI, COPD, hepatic encephalopathy - HP TREATMENTS Rifaximin 550mg PO 1000 02/02/18-02/03/18 (This form is maintained as a part of the permanent medical record) 2014 [employer]. All Rights Reserved Chel Jackson, CCS, [employer], CASC [email or web address]
== END 2018-02-03 04:38 | disposition expired | DRG 871 ==
LOC: ERS 21:26 → CCU 23:00
PROVIDERS: ADMIT Student in an Organized Health Care Education/Training Program; ATTEND Student in an Organized Health Care Education/Training Program
DX: A41.9 Sepsis, unspecified organism (principal); K76.7 Hepatorenal syndrome; G93.41 Metabolic encephalopathy; N17.9 Acute kidney failure, unspecified; N39.0 Urinary tract infection, site not specified; E87.4 Mixed disorder of acid-base balance; K72.90 Hepatic failure, unspecified without coma; K70.30 Alcoholic cirrhosis of liver without ascites; J44.9 Chronic obstructive pulmonary disease, unspecified; B18.2 Chronic viral hepatitis C; Z66 Do not resuscitate; Z91.14 Patient's other noncompliance with medication regimen
CPT/HCPCS: 31500; 36416; 36556; 51702; 70450; 71045; 80053; 80306; 80307; 81003; 81015; 82140; 82330; 82803; 82805; 83605; 83735; 84100; 85014; 85025; 85610; 85730; 87076; 87086; 93005; 94002; 94003; 94760; 96361; 96365; 96375; 99292; J0696; J1610; J2704; J3480; J7050; P9045